=== PATIENT | male | born 1965 | race Caucasian/White ===

== ENCOUNTER 2018-02-04 10:24 | Emergency (ER) | payer MEDICARE, MEDICAID, SELFPAY ==
--- NOTE | 2018-02-04 10:24 | DT_ITS ---
This patient was seen during an EMR downtime January 30, 2018 - February 06, 2018. This patient may have a combination of paper and electronic documentation or all paper documentation. All documentation is viewable within the e-chart portion of [facility] for each patient visit.
--- NOTE | 2018-02-04 12:00 | RAD_ITS ---
STUDY: X-RAY - LEFT ANKLE REASON FOR EXAM: Unknown, 52 years old. Injury. Fall TECHNIQUE: 3 view(s) of the ankle. COMPARISON: None. FINDINGS: Normal visualized distal tibia and fibula. Normal medial and lateral malleoli. Normal tibiotalar articulation and ankle mortise. Normal visualized talus. Plantar and dorsal spurs of the calcaneus. The visualized subtalar, talonavicular, calcaneocuboid and tarsal articulations are normal. There is no demonstrated fracture. The soft tissue structures are unremarkable. RAD/Ankle min 3 Views IMPRESSION: No fracture seen. Small heel spurs. Electronically Signed: Pankaj Pollard MD at 12:04 EDT , Service support ,
--- NOTE | 2018-02-04 13:40 | RAD_ITS ---
STUDY: X-RAY - RIGHT FOOT CLINICAL: Unknown, 52 years old. Pain. Fall TECHNIQUE: 3 view(s) of the foot. COMPARISON: None. FINDINGS: There are plantar and dorsal calcaneal spurs. Normal visualized subtalar, talonavicular, calcaneocuboid, tarsal and tarsometatarsal articulations. There is there is flattening of the second, third, and fourth metatarsal heads. There is degenerative arthrosis of the metatarsophalangeal joint of the hallux . Normal tibial and fibular sesamoid bones. Normal interphalangeal joint of the great toe. Normal phalanges of the great toe. Normal second through fifth metatarsophalangeal joints. Normal interphalangeal joints and phalanges of the lesser toes. The soft tissue structures are unremarkable. There is no demonstrated fracture. RAD/Foot min 3 Views IMPRESSION: No fracture seen. Mild arthritic change. Electronically Signed: Pankaj Pollard MD at 14:59 EDT , Service support ,
== END 2018-02-04 13:30 | disposition home or self-care (01) ==
LOC: ED 02-05 12:51
PROVIDERS: Emergency Provider Emergency Medicine
DX: S99.911A Unspecified injury of right ankle, initial encounter (principal); W18.40XA Slipping, tripping and stumbling without falling, unspecified, initial encounter; Y93.01 Activity, walking, marching and hiking; Y92.009 Unspecified place in unspecified non-institutional (private) residence as the place of occurrence of the external cause; Y99.8 Other external cause status; S99.921A Unspecified injury of right foot, initial encounter
CPT/HCPCS: 73610; 73630; 99283

== ENCOUNTER → 2018-05-10 13:08 | Outpatient (CLI) | payer MEDICARE, MEDICAID, SELFPAY ==
--- NOTE | 2018-05-10 13:21 | RAD_ITS ---
STUDY: X-RAY - LUMBAR SPINE REASON FOR EXAM: Male, 52 years old. Chronic low back pain TECHNIQUE: 3 view(s) of the lumbar spine were obtained. COMPARISON: None FINDINGS: Normal lumbar lordosis. There is no substantial scoliosis. There is a normal alignment of the vertebrae. No evidence for acute fracture or subluxation. There is multilevel disc space narrowing and osteophytic spurring. The soft tissue structures are unremarkable. RAD/Lumbar Spine 2 or 3 Views IMPRESSION: Advanced spondylosis. No evidence for acute fracture Electronically Signed: Song Bailey MD at 23:57 EDT , Service support ,
[2018-05-10 14:10] LABS: Amphetamine Urine VISTA NEGATIVE (<1000 ng/mL); Barbiturate Urine VISTA NEGATIVE (< 200 ng/mL); Benzodiazepine Urine VISTA NEGATIVE (< 200 ng/mL); Cocaine Urine VISTA NEGATIVE (< 300 ng/mL); Ecstacy Urine VISTA NEGATIVE (< 500 ng/mL); Methadone Urine VISTA NEGATIVE (< 300 ng/mL); PCP Urine VISTA NEGATIVE (< 25 ng/mL); THC Urine VISTA NEGATIVE (< 50 ng/mL); Vista UDS pH Range 7
== END ==
PROVIDERS: Visit Provider Anesthesiology Pain Medicine
DX: F11.20 Opioid dependence, uncomplicated (principal)
CPT/HCPCS: 72100; 80307

== ENCOUNTER → 2018-06-07 12:00 | Outpatient (CLI) | payer MEDICARE, MEDICAID, SELFPAY ==
[2018-06-07 13:12] LABS: Amphetamine Urine VISTA NEGATIVE (<1000 ng/mL); Barbiturate Urine VISTA NEGATIVE (< 200 ng/mL); Benzodiazepine Urine VISTA NEGATIVE (< 200 ng/mL); Cocaine Urine VISTA NEGATIVE (< 300 ng/mL); Ecstacy Urine VISTA NEGATIVE (< 500 ng/mL); Methadone Urine VISTA NEGATIVE (< 300 ng/mL); PCP Urine VISTA NEGATIVE (< 25 ng/mL); THC Urine VISTA NEGATIVE (< 50 ng/mL); Vista UDS pH Range 5
== END ==
PROVIDERS: Referring Provider Anesthesiology Pain Medicine; Visit Provider Anesthesiology Pain Medicine
DX: F11.20 Opioid dependence, uncomplicated (principal)
CPT/HCPCS: 80307

== ENCOUNTER → 2018-09-13 11:55 | Outpatient (CLI) | payer MEDICARE, MEDICAID, SELFPAY ==
[2018-09-13 12:49] LABS: Amphetamine Urine VISTA NEGATIVE (<1000 ng/mL); Barbiturate Urine VISTA NEGATIVE (< 200 ng/mL); Benzodiazepine Urine VISTA NEGATIVE (< 200 ng/mL); Cocaine Urine VISTA NEGATIVE (< 300 ng/mL); Ecstacy Urine VISTA NEGATIVE (< 500 ng/mL); Methadone Urine VISTA NEGATIVE (< 300 ng/mL); PCP Urine VISTA NEGATIVE (< 25 ng/mL); THC Urine VISTA NEGATIVE (< 50 ng/mL); Vista UDS pH Range 6
--- OUTSIDE RECORDS SUMMARY | 2018-11-18 08:02 | XMS RPT_ITS ---
:1965 Author Organization OHIP Care Team Providers Name Role Phone INDIA DIAS Attending Unavailable INDIA DIAS Referring Unavailable INDIA DIAS Admitting Unavailable LIANG, BECKA Primary Care Unavailable LIANG, BECKA Attending Unavailable LIANG, BECKA Primary Care Unavailable LIANG, BECKA Referring Unavailable INDIA DIAS Attending Unavailable LIANG, BECKA Referring Unavailable LIANG, BECKA Primary Care Unavailable LIANG, BECKA Primary Care Unavailable LIANG, BECKA Referring Unavailable VERONICA GANN Attending Unavailable Soheila Fan Attending Unavailable Primay Care Physicia, No Primary Care Unavailable Basali, Ayman Attending Unavailable Basali, Ayman Referring Unavailable Primay Care Physicia, No Primary Care Unavailable Basali, Ayman Attending Unavailable Basali, Ayman Referring Unavailable Primay Care Physicia, No Primary Care Unavailable Basali, Ayman Attending Unavailable Basali, Ayman Referring Unavailable Primay Care Physicia, No Primary Care Unavailable PROBLEMS PROBLEMS DATE TYPE CONDITION / CODE ATTENDING STATUS SOURCE 09/13/2018 Unknown F11.20 - Opioid Basali, Ayman Active [place] dependence, Community uncomplicated / Hospital F11.20(ICD-10) Repository 02/24/2018 Unknown M25.571 - Pain in [place]ita Active [place] right ankle and [place] Community joints of right Hospital foot / Repository M25.571(ICD-10) 01/20/2018 Unknown Tobacco use / BECKA LIANG Active [facility] Z72.0(ICD-10) [facility] Repository 01/20/2018 Unknown Body mass index BECKA LIANG Active [place] (bmi) 37.0-37.9, HealthCare adult / System Z68.37(ICD-10) Repository 01/05/2018 Unknown Cough / R05(ICD-10) SANDLUND, Active [facility] Repository 01/05/2018 Unknown Acute bronchitis, SANDLUND, Active [place] unspecified / [facility] J20.9(ICD-10) System Repository 12/01/2017 Unknown Acute suppurative BLAYAHAIRA ReyesVERONICA Active [place] otitis media [facility]Care without spontaneous System rupture of ear Repository drum, left ear / H66.002(ICD-10) 12/01/2017 Unknown Other specified BLAZYAHAIRAVERONICA Active [place] disorders of [facility] eustachian tube, System bilateral / Repository H69.83(ICD-10) PROCEDURES PROCEDURES No Procedure Records FoundRESULTS RESULTS URINE DRUG SCREEN Collected: 09/13/2018 Status: F Source: [place] (VISTA) 12:02 PM [facility] REPOSITORY Order Comment: List of Drugs Taken or Suspected? UNK TYPE CODE TESTS RESULT OUT OF RANGE REFERENCE UNITS LAB L505.0075 TO BE Normal CONFIRMED Result Comment: CONFIRMATORY TESTING FOR ALL POSITIVE URINE DRUG SCREEN RESULTS WILL ONLY BE SENT OUT UPON PHYSICIAN ORDER. VISTA Urine Drug Screen methods provide only preliminary analytical test results. A more specific alternate chemical method must be used in order to obtain a confirmed analytical result. Gas chromatography/mass spectrometery (GC/MS) is the preferred confirmatory method. Clinical consideration and professional judgement should be applied to any drug of abuse test result, particularly when preliminary positive results are used. URINE TCA TESTING MUST BE ORDERED SEPARATELY. USE TEST MNEMONIC: [facility] LAB L505.5005 VISTA UDS PH 6 Normal LAB L505.5015 <1000 ng/mL AMPHETAMINES Normal NEGATIVE LAB L505.5025 < 200 ng/mL BARBITIURATES Normal NEGATIVE LAB L505.5035 < 200 ng/mL BENZODIAZIPINE Normal NEGATIVE LAB L505.5045 < 300 ng/mL COCAINE Normal NEGATIVE LAB L505.5055 < 500 ng/mL ECSTACY Normal NEGATIVE LAB L505.5065 < 300 ng/mL METHADONE Normal NEGATIVE LAB L505.5075 < 300 ng/mL OPIATES Normal NEGATIVE LAB L505.5085 < 25 ng/mL PCP Normal NEGATIVE LAB L505.5095 < 50 ng/mL THC Normal NEGATIVE Performed By: #### L505.5000 #### [facility] Laboratory [address] [place], [address] MISCELLANEOUS LAB Collected: 09/13/2018 Status: F Source: [place] PROCEDURE 12:02 PM [facility] REPOSITORY Order Comment: Test(s) Ordered: [id number] URINE DRUG SCREEN TYPE CODE TESTS RESULT OUT OF RANGE REFERENCE UNITS LAB L801.1541 Normal [facility] LAB TEST Result Comment: [id number] 6+OXYCODONE-BUND (ng/mL) DRUG RESULT SCREEN CUTOFF ____ Amphetamines,Urine Negative ng/mL 1000 Amphetamine test includes Amphetamine and Methamphetamine. Barbiturates Negative ng/mL 200 Benzodiazepines Negative ng/mL 200 Cannabinoid Negative ng/mL 20 Cocaine (Metab) Negative ng/mL 300 Opiates Negative ng/mL 300 Opiates test includes Codeine, Morphine, Hydromorphone, Hydrocodone. Oxycodone/Oxymorphone,Urine Negative ng/mL 300 Test includes Oxydodone and Oxymorphone. TESTING PERFORMED AT [facility]. ORIGINAL REPORT ON FILE IN LAB CONTAINS ADDITIONAL TEST SITE INFORMATION. Performed By: #### L801.1541 #### [place] [facility] Laboratory [address] [place], [address] URINE DRUG SCREEN Collected: 06/07/2018 Status: F Source: [place] (DOMONIQUE) 12:04 PM [facility] REPOSITORY Order Comment: Comments: [id number], URINE TOX, RUN LOWEST TEST List of Drugs Taken or Suspected? UNK TYPE CODE TESTS RESULT OUT OF RANGE REFERENCE UNITS LAB L505.0075 TO BE Normal CONFIRMED Result Comment: CONFIRMATORY TESTING FOR ALL POSITIVE URINE DRUG SCREEN RESULTS WILL ONLY BE SENT OUT UPON PHYSICIAN ORDER. VISTA Urine Drug Screen methods provide only preliminary analytical test results. A more specific alternate chemical method must be used in order to obtain a confirmed analytical result. Gas chromatography/mass spectrometery (GC/MS) is the preferred confirmatory method. Clinical consideration and professional judgement should be applied to any drug of abuse test result, particularly when preliminary positive results are used. URINE TCA TESTING MUST BE ORDERED SEPARATELY. USE TEST MNEMONIC: [facility] LAB L505.5005 VISTA UDS PH 5 Normal LAB L505.5015 <1000 ng/mL AMPHETAMINES Normal NEGATIVE LAB L505.5025 < 200 ng/mL BARBITIURATES Normal NEGATIVE LAB L505.5035 < 200 ng/mL BENZODIAZIPINE Normal NEGATIVE LAB L505.5045 < 300 ng/mL COCAINE Normal NEGATIVE LAB L505.5055 < 500 ng/mL ECSTACY Normal NEGATIVE LAB L505.5065 < 300 ng/mL METHADONE Normal NEGATIVE LAB L505.5075 < 300 ng/mL OPIATES Normal NEGATIVE LAB L505.5085 < 25 ng/mL PCP Normal NEGATIVE LAB L505.5095 < 50 ng/mL THC Normal NEGATIVE Performed By: #### L505.5000 #### [facility] [address] [place], [address] MISCELLANEOUS LAB Collected: 06/07/2018 Status: F Source: [place] PROCEDURE 12:04 PM [facility] REPOSITORY Order Comment: Comments: [id number], URINE TOX, RUN LOWEST TEST Test(s) Ordered: [id number], URINE TOX TYPE CODE TESTS RESULT OUT OF RANGE REFERENCE UNITS LAB L801.1541 Normal [facility] LAB TEST Result Comment: TEST RESULT UNITS REF INTERVAL [id number] 6+Oxycodone-Bund Amphetamines, Urine Negative ng/mL Clsror=6192 Amphetamine test includes Amphetamine and Methamphetamine. Barbiturate Negative ng/mL Lnyals=892 Benzodiazepines Negative ng/mL Ruhedh=594 Cannabinoids Negative ng/mL Cutoff=20 Cocaine (Metabolite) Negative ng/mL Rvtjqb=688 Opiates Negative ng/mL Vjhwwp=065 Opiate test includes Codeine, Morphine, Hydromorphone, Hydrocodone. Oxycodone/Oxymorph Positive Cldoac=036 Test includes Oxycodone and Oxymorphone Oxycodone Positive Oxycodone (GC/MS) 1165 ng/mL Dpooqr=264 Oxymorphone Positive Oxymorphone (GC/MS) 394 ng/mL Vvfweb=585 TESTING PERFORMED AT [facility]. ORIGINAL REPORT ON FILE IN LAB CONTAINS ADDITIONAL TEST SITE INFORMATION. Performed By: #### L801.1541 #### [facility] Laboratory [address] [place], [address] LUMBAR SPINE 2 OR 3 Observed: 05/10/2018 Status: F Source: PHILIPP VIEWS 1:21 PM [facility] REPOSITORY [facility] Imaging Services [address] [place] [address] Lumbar Spine 2 or 3 Views MR#: [id number] Acct: [id number] Name: CLIFFORD PARKS Rep #: [id number] : 1965 M 52 From: Song Bailey MD PCP: Care Physician, No Primary Status: REG CLI Study: Lumbar Spine 2 or 3 Views Date of Exam: 05/10/18 Exam# [id number] Ordering Dr: Jamee López MD STUDY: X-RAY - LUMBAR SPINE REASON FOR EXAM: Male, 52 years old. Chronic low back pain TECHNIQUE: 3 view(s) of the lumbar spine were obtained. COMPARISON: None FINDINGS: Normal lumbar lordosis. There is no substantial scoliosis. There is a normal alignment of the vertebrae. No evidence for acute fracture or subluxation. There is multilevel disc space narrowing and osteophytic spurring. The soft tissue structures are unremarkable. RAD/Lumbar Spine 2 or 3 Views IMPRESSION: Advanced spondylosis. No evidence for acute fracture Electronically Signed: Song Bailey MD at 23:57 EDT , Service support , CC: No Primary Care Physician; Jamee López MD [employer] Quality Control Technician: Signed URINE DRUG SCREEN Collected: 05/10/2018 Status: F Source: [place] (VISTA) 1:13 PM [facility] REPOSITORY Order Comment: Comments: [id number] urine tox run lowest test List of Drugs Taken or Suspected? UNK TYPE CODE TESTS RESULT OUT OF RANGE REFERENCE UNITS LAB L505.0075 TO BE Normal CONFIRMED Result Comment: CONFIRMATORY TESTING FOR ALL POSITIVE URINE DRUG SCREEN RESULTS WILL ONLY BE SENT OUT UPON PHYSICIAN ORDER. VISTA Urine Drug Screen methods provide only preliminary analytical test results. A more specific alternate chemical method must be used in order to obtain a confirmed analytical result. Gas chromatography/mass spectrometery (GC/MS) is the preferred confirmatory method. Clinical consideration and professional judgement should be applied to any drug of abuse test result, particularly when preliminary positive results are used. URINE TCA TESTING MUST BE ORDERED SEPARATELY. USE TEST MNEMONIC: [facility] LAB L505.5005 VISTA UDS PH 7 Normal LAB L505.5015 <1000 ng/mL AMPHETAMINES Normal NEGATIVE LAB L505.5025 < 200 ng/mL BARBITIURATES Normal NEGATIVE LAB L505.5035 < 200 ng/mL BENZODIAZIPINE Normal NEGATIVE LAB L505.5045 < 300 ng/mL COCAINE Normal NEGATIVE LAB L505.5055 < 500 ng/mL ECSTACY Normal NEGATIVE LAB L505.5065 < 300 ng/mL METHADONE Normal NEGATIVE LAB L505.5075 < 300 ng/mL OPIATES Normal NEGATIVE LAB L505.5085 < 25 ng/mL PCP Normal NEGATIVE LAB L505.5095 < 50 ng/mL THC Normal NEGATIVE Performed By: #### L505.5000 #### [place] [facility] Laboratory [address] [place], [address] MISCELLANEOUS LAB Collected: 05/10/2018 Status: F Source: [place] PROCEDURE 1:13 PM [facility] REPOSITORY Order Comment: Comments: [id number] urine tox run lowest test Test(s) Ordered: [id number] urine tox run lowest test TYPE CODE TESTS RESULT OUT OF RANGE REFERENCE UNITS LAB L801.1541 Normal [facility] LAB TEST Result Comment: TEST RESULT UNITS REFERENCE INTERVAL 525417 6+OXYCODONE-BUND (ng/mL) DRUG RESULT SCREEN CUTOFF ____ Amphetamines,Urine Negative ng/mL 1000 Amphetamine test includes Amphetamine and Methamphetamine. Barbiturates Negative ng/mL 200 Benzodiazepines Negative ng/mL 200 Cannabinoid Negative ng/mL 20 Cocaine (Metab) Negative ng/mL 300 Opiates Negative ng/mL 300 Opiates test includes Codeine, Morphine, Hydromorphone, Hydrocodone. Oxycodone/Oxymorphone,Urine Negative ng/mL 300 Test includes Oxydodone and Oxymorphone. TESTING PERFORMED AT [facility]. ORIGINAL REPORT ON FILE IN LAB CONTAINS ADDITIONAL TEST SITE INFORMATION. Performed By: #### L801.1541 #### [place] [facility] Laboratory [address] [place], [address] DOWNTIME REPORT Observed: 02/15/2018 Status: F Source: [place] 1:35 PM [facility] Medical Records Department [address] [place] [address] Downtime Report MR#: [id number] Acct: [id number] Name: CLIFFORD PARKS Rep #: [id number] : 1965 52 From: Mike Segura MD PCP: Care Physician, No Primary Status: [facility] ER This patient was seen during an EMR downtime January 30, 2018 - February 06, 2018. This patient may have a combination of paper and electronic documentation or all paper documentation. All documentation is viewable within the e-chart portion of [facility] for each patient visit. FOOT MIN 3 VIEWS Observed: 02/05/2018 Status: F Source: [place] 5:09 PM [facility] Imaging Services [address] [place] [address] Foot min 3 Views MR#: [id number] Acct: [id number] Name: CLIFFORD PARKS Rep #: [id number] : 1965 M 52 From: Pankaj Pollard MD PCP: Care Physician, No Primary Status: REG ER Study: Foot min 3 Views Date of Exam: 02/04/18 Exam# [id number] Ordering Dr: Soheila Fan MD STUDY: X-RAY - RIGHT FOOT CLINICAL: Unknown, 52 years old. Pain. Fall TECHNIQUE: 3 view(s) of the foot. COMPARISON: None. FINDINGS: There are plantar and dorsal calcaneal spurs. Normal visualized subtalar, talonavicular, calcaneocuboid, tarsal and tarsometatarsal articulations. There is there is flattening of the second, third, and fourth metatarsal heads. There is degenerative arthrosis of the metatarsophalangeal joint of the hallux . Normal tibial and fibular sesamoid bones. Normal interphalangeal joint of the great toe. Normal phalanges of the great toe. Normal second through fifth metatarsophalangeal joints. Normal interphalangeal joints and phalanges of the lesser toes. The soft tissue structures are unremarkable. There is no demonstrated fracture. RAD/Foot min 3 Views IMPRESSION: No fracture seen. Mild arthritic change. Electronically Signed: Pankaj Pollard MD at 14:59 EDT , Service support , CC: MD [place] Fan; No Primary Care Physician [employer] Quality Control Technician: Signed ANKLE MIN 3 VIEWS Observed: 02/05/2018 Status: F Source: PHILIPP 5:08 PM [facility] REPOSITORY [facility] Imaging Services [address] [place] [address] Ankle min 3 Views MR#: [id number] Acct: [id number] Name: CLIFFORD PARKS Rep #: [id number] : 1965 M 52 From: Pankaj Pollard MD PCP: Care Physician, No Primary Status: REG ER Study: Ankle min 3 Views Date of Exam: 02/04/18 Exam# [id number] Ordering Dr: Soheila Fan MD STUDY: X-RAY - LEFT ANKLE REASON FOR EXAM: Unknown, 52 years old. Injury. Fall TECHNIQUE: 3 view(s) of the ankle. COMPARISON: None. FINDINGS: Normal visualized distal tibia and fibula. Normal medial and lateral malleoli. Normal tibiotalar articulation and ankle mortise. Normal visualized talus. Plantar and dorsal spurs of the calcaneus. The visualized subtalar, talonavicular, calcaneocuboid and tarsal articulations are normal. There is no demonstrated fracture. The soft tissue structures are unremarkable. RAD/Ankle min 3 Views IMPRESSION: No fracture seen. Small heel spurs. Electronically Signed: Pankaj Pollard MD at 12:04 EDT , Service support , CC: MD [place]ina Fan; No Primary Care Physician [employer] Quality Control Technician: Signed XR CHEST PA AND Observed: 01/05/2018 Status: F Source: DANIEL LATERAL 12:56 PM [facility]ORY EXAMINATION: TWO VIEWS OF THE CHEST 01/05/2018 12:56 pm COMPARISON: 11/06/2012 HISTORY: Cough and congestion x 12 days FINDINGS: Postoperative change noted at the right shoulder. The heart is normal in size and there is no vascular congestion present. No consolidation or pleural fluid seen. Minimal atelectasis right lung base. There are degenerative changes noted in the spine. IMPRESSION: Minimal right basilar atelectasis, no other acute finding. ALLERGIES ALLERGIES No Allergies Records FoundENCOUNTERS ENCOUNTERS ADMIT/DISCHARGE ACCOUNT NUMBER ADMITTING ENCOUNTER LOCATION SOURCE CLASS 09/13/2018 [id number] [facility] ding:LAB Repository 06/07/2018 [id number] Ambulatory [facility] ding:LAB Repository 05/10/2018 [id number] Ambulatory [facility] ding:LAB Repository 02/04/2018/02/05/20 [id number] Emergency [address] ding:ED Repository 01/20/2018/01/21/20 [id number] Ambulatory [place] [address] [facility] Repository 01/05/2018/01/06/20 [id number] [facility], Ambulatory Building:[facility] [address] [place] [facility] Repository 01/05/2018/01/06/20 [id number] Ambulatory Buildin [place] [address] [facility] Repository 12/01/2017/12/02/19 [id number] Ambulatory Buildin [place] 586201 [facility] Repository PAYERS PAYERS ENCOUNTER GUARANTOR PAYER SUBSCRIBER SOURCE 09/13/2018 CLIFFORD Alvarez Primary CLIFFORD [place] [id number] CR Insurance:MEDICARE MAYDOB: [address] PART A BPolicy [id number] [facility] [address]Nqq: (740) Number: Repository [phone] [id number] Date:2018-09-13 09/13/2018 Secondary CLIFFORD R [place] Insurance:MEDICAIDPol MAYDOB: [facility]ly [facility] icy Number: [id number] Hospital [id number] Repository Date:2018-09-13 09/13/2018 Tertiary NOT GIVENUNK [place] Insurance:SELF PAY [facility] [address] Number: Effective Repository Date:2018-09-13 06/07/2018 CLIFFORD R Primary CLIFFORD R [place] [id number] CR Insurance:MEDICARE MAYDOB: [address] PART A [facility] [id number] Hospital [address]Xyl: (740) Number: Repository [phone] () [id number] Date:2018-06-07 06/07/2018 Secondary CLIFFORD R [place] Insurance:MEDICAIDPol MAYDOB: [facility] ic Number: [id number] Hospital [id number] Repository Date:2018-06-07 06/07/2018 Tertiary NOT GIVENUNK [place] Insurance:SELF PAY [facility] Number: Effective Repository Date:2018-06-07 05/10/2018 CLIFFORD R Primary CLIFFORD R [place] [id number] CR Insurance:MEDICARE MAYDOB: [address] PART A [facility] [id number] Hospital [address]Wur: (740) Number: Repository [phone] () [id number] Date:2018-05-10 05/10/2018 Secondary CLIFFORD R [place] Insurance:MEDICAIDPol MAYDOB: [facility] ic Number: [id number] Hospital [id number] Repository Date:2018-05-10 05/10/2018 Tertiary NOT GIVENUNK [place] Insurance:SELF PAY [facility] Number: Effective Repository Date:2018-05-10 02/04/2018 CLIFFORD R Primary CLIFFORD R [place] [id number] MAIN Insurance:MEDICARE MAYDOB: [facility] A [id number] [address]Nvu: Number: Repository [id number] (HP) Date:2018-02-04 02/04/2018 Secondary CLIFFORD R [place] Insurance:MEDICAIDPol MAYDOB: [facility] icy Number: [id number] Hospital [id number] Repository Date:2018-02-04 02/04/2018 Tertiary NOT GIVENUNK [place] Insurance:SELF PAY [facility] Number: Effective Repository Date:2018-02-04 01/20/2018 CLIFFORD R Primary CLIFFORD R [place] MAYDOB: Insurance:MEDICAREPol MAYDOB: HealthCare [id number] BOX icy Number: [id number] System [address] [place], [id number] BOX Repository [place] [address]Nfo: Date: [address] [place] [address], [place] [address]Vqt: (HP) (HP) 01/20/2018 Secondary CLIFFORD R [place] Insurance:MEDICAIDPol DECEMBERDOB: HealthCare icy Number: [id number] System [id number] BOX Repository Date: [address] [place] [phone]: (HP) 01/05/2018 CLIFFORD R Primary CLIFFORD R [place] MAYDOB: Insurance:MEDICAREPol MAYDOB: HealthCare [id number] BOX icy Number: [id number] System [address] [place] [address], [id number] BOX Repository [place] [address]Vap: Date: [address] [place] [address], [place] [address]Dcq: (HP) (HP) 01/05/2018 Secondary CLIFFORD R [place] Insurance:MEDICAIDPol MAYDOB: HealthCare icy Number: [id number] System [id number] BOX Repository Date: [address] [place] [address]Wmy: (HP) 01/05/2018 CLIFFORD R Primary CLIFFORD R [place] MAYDOB: Insurance:MEDICAREPol MAYDOB: HealthCare [id number] BOX icy Number: [id number] System [address] [place], [id number] BOX Repository [place] [address]Rlm: Date: [address] [place], [place] [address]Lli: (HP) (HP) 01/05/2018 Secondary CLIFFORD R [place] Insurance:MEDICAIDPol MAYDOB: HealthCare icy Number: [id number] System [id number] BOX Repository Date: [address] [place] [address]Ypy: (HP) 12/01/2017 CLIFFORD Alvarez Primary [facility] [place] [facility]MEDICAREPol MAYB: HealthCare [id number] BOX icy Number: [id number] System [address] [place] [address] [id number] BOX Repository [place] [address]Gpl: Date: [address] [place] [address], [place] [address]Ymr: (HP) (HP) 12/01/2017 Secondary CLIFFORD [place] Insurance:MEDICAIDPol DECEMBERB: HealthCare icy Number: [id number] System [id number] BOX Repository Date: [address] [place] [address]Wtv: (HP)
== END ==
PROVIDERS: Referring Provider Anesthesiology Pain Medicine; Visit Provider Anesthesiology Pain Medicine
DX: F11.20 Opioid dependence, uncomplicated (principal)
CPT/HCPCS: 80307

== ENCOUNTER → 2018-10-11 13:19 | Outpatient (CLI) | payer MEDICARE, MEDICAID, SELFPAY ==
[2018-10-11 14:16] LABS: Amphetamine Urine VISTA NEGATIVE (<1000 ng/mL); Barbiturate Urine VISTA NEGATIVE (< 200 ng/mL); Benzodiazepine Urine VISTA NEGATIVE (< 200 ng/mL); Cocaine Urine VISTA NEGATIVE (< 300 ng/mL); Ecstacy Urine VISTA NEGATIVE (< 500 ng/mL); Methadone Urine VISTA NEGATIVE (< 300 ng/mL); PCP Urine VISTA NEGATIVE (< 25 ng/mL); THC Urine VISTA NEGATIVE (< 50 ng/mL); Vista UDS pH Range 5
== END ==
PROVIDERS: Referring Provider Anesthesiology Pain Medicine; Visit Provider Anesthesiology Pain Medicine
DX: F11.20 Opioid dependence, uncomplicated (principal)
CPT/HCPCS: 80307

== ENCOUNTER → 2018-11-02 10:29 | Outpatient (CLI) | payer MEDICARE, MEDICAID, SELFPAY ==
[2018-11-02 10:17] VITALS: BMI 34.7
--- NOTE | 2018-11-02 10:32 | RAD_ITS ---
STUDY: X-RAY - RIGHT SHOULDER REASON FOR EXAM: Male, 53 years old. Injury. Pain. TECHNIQUE: 4 view(s) of the shoulder. COMPARISON: None. FINDINGS: There is evidence of artificial glenohumeral joint. The prosthetic components articulate normally with each other. There is no loosening from the underlying bone. There is degenerative arthrosis of the acromioclavicular joint without inferior osseous spur formation. Normal acromion. There is no fracture or dislocation. The soft tissue structures are unremarkable. Normal visualized pulmonary apex. RAD/Shoulder min 2 Views IMPRESSION: Right artificial shoulder without acute abnormality. Electronically Signed: Fidel Marti DO at 22:26 EST Tel [phone], Service support ,
== END ==
PROVIDERS: Referring Provider Orthopaedic Surgery; Visit Provider Orthopaedic Surgery
DX: M25.511 Pain in right shoulder (principal); Z96.611 Presence of right artificial shoulder joint
CPT/HCPCS: 73030